=== PATIENT | female | born 1950 | race Caucasian/White ===

== ENCOUNTER → 2025-11-05 12:58 | Outpatient (CLI) | payer MEDICARE, BC, SELFPAY ==
--- NOTE | 2025-11-05 13:26 | DI.RAD_ITS ---
Exam(s) XR FOOT LT COMPLETE EXAM: XR FOOT LT COMPLETE CLINICAL HISTORY: Left foot pain,m79.672. TECHNIQUE: 2D digital imaging was performed. COMPARISON: CR XR FOOT RT COMPLETE from 11/05/2025 FINDINGS: 3 views No evidence of acute fracture. There is prominent hallux valgus, similar to the opposite side. There are hammertoe deformities and crossing of the phalanges of the great toe and 2nd toe. There also degenerative changes in the tarsometatarsal joints, similar to the opposite side. Mild degenerative changes on the dorsal aspect of the talonavicular joint. There is no inferior calcaneal spur but there is a small enthesophyte on the posterior calcaneus Achilles insertion site. IMPRESSION: Prominent hallux valgus other findings as described above, quite similar to the opposite-right side. DATA REPOSITORY: RADIATION DOSE DELIVERED:
--- NOTE | 2025-11-05 13:26 | DI.RAD_ITS ---
Exam(s) XR FOOT RT COMPLETE EXAM: XR FOOT RT COMPLETE CLINICAL HISTORY: Right foot pain,m79.671. TECHNIQUE: 2D digital imaging was performed. COMPARISON: CR XR FOOT LT COMPLETE from 11/05/2025 FINDINGS: No evidence of acute fracture nor diastasis of the Lisfranc joint. There is prominent hallux valgus, similar to the opposite side. There is crossing of the phalanges of the great toe and 2nd toe, similar to the opposite side. There are hammertoe deformities, similar to the opposite side. There are degenerative changes in all of the tarsometatarsal joints. Lesser amount of degenerative change in the hindfoot. Moderate size inferior calcaneal spur is noted. IMPRESSION: Multilevel findings as above. Quite similar appearance to the opposite-left foot. DATA REPOSITORY: RADIATION DOSE DELIVERED:
== END ==
LOC: DI 12:58
PROVIDERS: PCP Internal Medicine; Visit Provider Podiatrist
DX: M19.071 Primary osteoarthritis, right ankle and foot (principal); M19.072 Primary osteoarthritis, left ankle and foot; M77.31 Calcaneal spur, right foot; M20.12 Hallux valgus (acquired), left foot; M79.674 Pain in right toe(s); M79.675 Pain in left toe(s); M21.611 Bunion of right foot; M21.612 Bunion of left foot; M20.41 Other hammer toe(s) (acquired), right foot; M20.42 Other hammer toe(s) (acquired), left foot; G57.63 Lesion of plantar nerve, bilateral lower limbs; M67.01 Short Achilles tendon (acquired), right ankle; M67.02 Short Achilles tendon (acquired), left ankle
CPT/HCPCS: 29540; 99203; 73630